=== PATIENT | male | born 1960 | race Caucasian/White ===

== ENCOUNTER 2022-11-13 14:38 | Inpatient (IN) | payer MEDICAID ==
[~2022-11-13] VITALS: Ht 170.2 cm; Wt 99.7 kg
[2022-11-13 15:07] LABS: BASOPHILS % (AUTO) 0.3 % (0-1); EOSINOPHILS # (AUTO) 0.1 X10'3 (0-0.9); HEMATOCRIT 40.6 % (42.0-52.0); LYMPHOCYTES # (AUTO) 1.3 X10'3 (1.1-4.8); LYMPHOCYTES % (AUTO) 19.6 % (21-51); MEAN CORPUSCULAR HEMOGLOBIN 29.5 PG (27.0-31.0); MEAN CORPUSCULAR HGB CONC 34.4 g/dL (33.0-36.5); MEAN CORPUSCULAR VOLUME 85.6 FL (78-98); MEAN PLATELET VOLUME 6.8 FL (7.4-10.4); MONOCYTES # (AUTO) 0.7 X10'3 (0-0.9); MONOCYTES % (AUTO) 10.5 % (2-12); NEUTROPHILS # (AUTO) 4.7 X10'3 (1.8-7.7); NEUTROPHILS % (AUTO) 68.6 % (42-75); PLATELET COUNT 272 X10'3 (140-440); RED BLOOD COUNT 4.75 X10'6 (4.70-6.10); RED CELL DISTRIBUTION WIDTH 13.7 % (11.5-14.5); WHITE BLOOD COUNT 6.9 X10'3 (4.5-11.0)
[2022-11-13 15:22] LABS: ALANINE AMINOTRANSFERASE 168 U/L (12-78); ALBUMIN 3.2 G/DL (3.4-5.0); ALKALINE PHOSPHATASE 97 IU/L (46-116); ANION GAP 11 (8-16); ASPARTATE AMINO TRANSFERASE 59 U/L (10-37); BILIRUBIN,TOTAL 0.5 MG/DL (0.1-1.0); BLOOD UREA NITROGEN 13 MG/DL (7-18); BUN/CREATININE RATIO 13.1 (5.4-32.0); CALCIUM 8.4 MG/DL (8.5-10.1); CHLORIDE 103 MMOL/L (99-107); CREATININE 0.99 MG/DL (0.60-1.10); GLUCOSE 130 MG/DL (70-104); POTASSIUM 3.4 MMOL/L (3.5-5.1); SODIUM 138 MMOL/L (135-145); TOTAL CARBON DIOXIDE 24.2 MMOL/L (24-32); TOTAL PROTEIN 6.4 G/DL (6.4-8.2); eGFR 77 ML/MIN
[2022-11-13] MEDS ORDERED: nitroGLYCERIN 0.4mg SUBLingual tab SL PRN ×3 (15:35→17:10)
[2022-11-13] MEDS ORDERED: aspirin 81mg tab.chew PO ONE (15:35)
[2022-11-13] MEDS ORDERED: heparin 10,000 units/1 ML INJ IV ONE (15:35)
[2022-11-13 16:02] LABS: APTT 29 SECONDS (22-32)
[2022-11-13] MEDS: heparin 25,000 UNIT/250ml bag 250 ML IV PRN (16:34)
--- NOTE | 2022-11-13 16:41 | NUR ---
FIRST CONTACT. AO4 RESP EVEN UNLABORED SOB WITH EXCERSION. SPEAKS IN COMPLETE SENTENCES. SKIN W/D/I PINK.
[2022-11-13] MEDS ORDERED: potassium Cl 20 mEq SR tablet PO PRN ×2 (16:55)
[2022-11-13] MEDS ORDERED: LORazepam 1 MG tablet PO PRN (16:55)
[2022-11-13] MEDS ORDERED: magnesium 2GM in 50ml NS 50 ML IV PRN (16:55)
[2022-11-13] MEDS ORDERED: acetaminophen 325mg tablet PO PRN (16:55)
[2022-11-13] MEDS ORDERED: haloperidol lactate 5mg/ml inj IM PRN (16:55)
[2022-11-13] MEDS: normal saline 1000ml 1,000 ML IV SCH (16:55)
[2022-11-13] MEDS ORDERED: ondansetron/PF 4mg/2ml inj IV PRN (16:55)
[2022-11-13] MEDS ORDERED: magnesium 4gm in 100ml NS 100 ML IV PRN (16:55)
[2022-11-13] MEDS ORDERED: LORazepam 2 mg/ml vial IV PRN (16:55)
[2022-11-13] MEDS ORDERED: potassium Cl 40MEQ/1/2NS 520ml 520 ML IV PRN (16:55)
[2022-11-13] MEDS ORDERED: magnesium hydroxide 30ml (MOM) UD suspension PO PRN (16:55)
[2022-11-13] MEDS ORDERED: haloperidol 5mg tablet PO PRN (16:55)
[2022-11-13] MEDS ORDERED: morphine 2 MG/ML inj. syringe IV PRN (16:55)
[2022-11-13] MEDS ORDERED: regadenoson 0.4mg/5ml syringe IV PRN (16:55)
[2022-11-13] MEDS ORDERED: aminophylline 250mg/10ml inj. IV PRN (16:55)
[2022-11-13] MEDS ORDERED: mag hydrox/Alum hydrox/simeth 30ml oral suspension PO PRN (16:55)
[2022-11-13] MEDS ORDERED: metoprolol tartrate 1mg/ml inj IV PRN (16:55)
--- NOTE | 2022-11-13 18:30 | NUR ---
REPORT TO EMERSON LAYTON FOR CONTINUATION OF CARE
[2022-11-13] MEDS ORDERED: APIX5TAB3 PO (19:12)
[2022-11-13] MEDS ORDERED: CETI10TA14 PO (19:12)
[2022-11-13] MEDS ORDERED: ATOR40TA72 PO (19:12)
[2022-11-13] MEDS ORDERED: LOSA50TA64 PO (19:12)
[2022-11-13] MEDS: K and/or MAG REPLACEMENT MC SCH (20:00)
[2022-11-13] MEDS: docusate sod 100mg capsule PO SCH (20:00)
[2022-11-13 22:06] LABS: CLARITY,URINE SLIGHTLY CLOUDY (Clear); COLOR,URINE AMBER (Yellow); GLUCOSE, URINE NEGATIVE (Neg); KETONES,URINE TRACE mg/dl (Neg); LEUKOCYTE ESTERASE ,URINE NEGATIVE (Neg); NITRITES, URINE NEGATIVE (Neg); OCCULT BLOOD,URINE LARGE (Neg); PROTEIN,URINE NEGATIVE (Neg)
[2022-11-13 22:10] LABS: UA COLLECTION TYPE CLN CATCH MIDSTREAM
[2022-11-13 22:14] LABS: RBC,URINE 50-100 /HPF (0-2); WBC,URINE 0-4 /HPF (0-4)
[2022-11-13 22:40] LABS: BACTERIA,URINE NONE SEEN /HPF (Neg); MUCUS STRANDS MODERATE /LPF (Neg); SQUAMOUS EPITHELIAL CELL,UR NONE SEEN /LPF (FEW)
[2022-11-13 23:30] VITALS: BP 142/98
[2022-11-14] VITALS (13 sets, daily range): BP systolic 115–136; BP diastolic 77–92
[2022-11-14] MEDS ORDERED: CEPH500C2 PO (04:25)
[2022-11-14] MEDS: heparin 10,000 units/1 ML INJ IV PRN ×2 (05:59→13:30)
[2022-11-14] MEDS: normal saline 1000ml 1,000 ML IV SCH (06:03)
--- NOTE | 2022-11-14 07:15 | NUR ---
Patient in room PCU 3014. I have received report from EMERSON Gomes and had the opportunity to ask questions and assume patient care.
[2022-11-14 07:42] LABS: BASOPHILS % (AUTO) 0.4 % (0-1); EOSINOPHILS # (AUTO) 0.1 X10'3 (0-0.9); EOSINOPHILS % (AUTO) 1.4 % (0-6); HEMATOCRIT 40.1 % (42.0-52.0); HEMOGLOBIN 13.6 g/dl (14.0-17.9); LYMPHOCYTES # (AUTO) 1.8 X10'3 (1.1-4.8); LYMPHOCYTES % (AUTO) 21.9 % (21-51); MEAN CORPUSCULAR HEMOGLOBIN 29.3 PG (27.0-31.0); MEAN CORPUSCULAR HGB CONC 33.9 g/dL (33.0-36.5); MEAN CORPUSCULAR VOLUME 86.4 FL (78-98); MEAN PLATELET VOLUME 7.1 FL (7.4-10.4); MONOCYTES # (AUTO) 0.8 X10'3 (0-0.9); MONOCYTES % (AUTO) 10.5 % (2-12); NEUTROPHILS # (AUTO) 5.3 X10'3 (1.8-7.7); NEUTROPHILS % (AUTO) 65.8 % (42-75); PLATELET COUNT 256 X10'3 (140-440); RED BLOOD COUNT 4.64 X10'6 (4.70-6.10); RED CELL DISTRIBUTION WIDTH 14.2 % (11.5-14.5)
[2022-11-14 07:57] LABS: ALANINE AMINOTRANSFERASE 138 U/L (12-78); ALBUMIN 2.8 G/DL (3.4-5.0); ALBUMIN/GLOBULIN RATIO 0.9 (1.1-1.5); ALKALINE PHOSPHATASE 78 IU/L (46-116); ANION GAP 10 (8-16); ASPARTATE AMINO TRANSFERASE 54 U/L (10-37); BILIRUBIN,TOTAL 0.6 MG/DL (0.1-1.0); BLOOD UREA NITROGEN 14 MG/DL (7-18); BUN/CREATININE RATIO 16.7 (5.4-32.0); CALCIUM 8.2 MG/DL (8.5-10.1); CHLORIDE 105 MMOL/L (99-107); CREATININE 0.84 MG/DL (0.60-1.10); GLUCOSE 116 MG/DL (70-104); LIPASE 60 U/L (73-393); MAGNESIUM 1.8 MG/DL (1.5-2.4); PHOSPHORUS 4.3 MG/DL (2.3-4.5); POTASSIUM 3.9 MMOL/L (3.5-5.1); SODIUM 138 MMOL/L (135-145); TOTAL CARBON DIOXIDE 23.2 MMOL/L (24-32); TOTAL PROTEIN 5.9 G/DL (6.4-8.2); eGFR > 90 ML/MIN
[2022-11-14] MEDS: K and/or MAG REPLACEMENT MC SCH ×2 (08:00→20:00)
--- NOTE | 2022-11-14 08:55 | NUR ---
pt to nuc med with RN, on heparin gtt, pt able to transfer self without assist from bed to wheelchair
--- NOTE | 2022-11-14 10:20 | NUR ---
pt back to room, report to Mattie RN, Dr Lopez aware stress test is done, pt tolerated well
[2022-11-14] MEDS: docusate sod 100mg capsule PO SCH ×2 (10:36→20:53)
[2022-11-14] MEDS: multivitamins, therapeutics tablet PO SCH (10:36)
[2022-11-14] MEDS: heparin 25,000 UNIT/250ml bag 250 ML IV PRN (11:10)
[2022-11-14] MEDS ORDERED: cetirizine 10mg tablet PO PRN (11:30)
[2022-11-14] MEDS ORDERED: carvedilol 6.25mg tablet PO ONE (11:30)
[2022-11-14] MEDS: atorvastatin 20mg tablet PO SCH (13:39)
--- NOTE | 2022-11-14 13:46 | NUR ---
PAGER ID: [phone] MESSAGE: Mattie [phone] RE: Nolan Mcarthur room 3014A - can we order him a diet?
--- NOTE | 2022-11-14 18:00 | NUR ---
Patient in room PCU 3014. I have received report from Mattie NORMAN and had the opportunity to ask questions and assume patient care.
--- NOTE | 2022-11-14 18:14 | NUR ---
Problems reprioritized. Patient report given, questions answered & plan of care reviewed with EMERSON Mccollum.
--- NOTE | 2022-11-14 20:00 | NUR ---
PTT 60 AT 1930 BLOOD DRAW; WITHIN THERAPEUTIC RANGE; NO CHANGES MADE.
[2022-11-14] MEDS: carvedilol 6.25mg tablet PO SCH (20:53)
[2022-11-15] MEDS: normal saline 1000ml 1,000 ML IV SCH ×2 (01:50→08:57)
[2022-11-15 02:00] VITALS: BP 124/75
[2022-11-15] MEDS: heparin 25,000 UNIT/250ml bag 250 ML IV PRN ×2 (03:03→20:07)
--- NOTE | 2022-11-15 06:47 | NUR ---
Problems reprioritized. Patient report given, questions answered & plan of care reviewed with Jeremie NORMAN.
[2022-11-15 07:00] VITALS: BP 131/90
[2022-11-15] MEDS: K and/or MAG REPLACEMENT MC SCH ×2 (08:00→19:25)
[2022-11-15] MEDS: atorvastatin 20mg tablet PO SCH (08:56)
[2022-11-15] MEDS: multivitamins, therapeutics tablet PO SCH (08:56)
[2022-11-15] MEDS: losartan 50mg tablet PO SCH (08:56)
[2022-11-15] MEDS: carvedilol 6.25mg tablet PO SCH ×2 (08:56→19:59)
[2022-11-15] MEDS: docusate sod 100mg capsule PO SCH ×2 (08:57→19:59)
[2022-11-15] MEDS ORDERED: furosemide 40mg/4ml inj IV ONE (09:10)
[2022-11-15 09:49] LABS: BASOPHILS % (AUTO) 0.2 % (0-1); EOSINOPHILS # (AUTO) 0.1 X10'3 (0-0.9); EOSINOPHILS % (AUTO) 1.9 % (0-6); HEMATOCRIT 40.1 % (42.0-52.0); HEMOGLOBIN 13.7 g/dl (14.0-17.9); LYMPHOCYTES # (AUTO) 1.6 X10'3 (1.1-4.8); LYMPHOCYTES % (AUTO) 20.4 % (21-51); MEAN CORPUSCULAR HEMOGLOBIN 29.6 PG (27.0-31.0); MEAN CORPUSCULAR HGB CONC 34.2 g/dL (33.0-36.5); MEAN CORPUSCULAR VOLUME 86.4 FL (78-98); MEAN PLATELET VOLUME 6.8 FL (7.4-10.4); MONOCYTES # (AUTO) 0.8 X10'3 (0-0.9); MONOCYTES % (AUTO) 10.1 % (2-12); NEUTROPHILS # (AUTO) 5.1 X10'3 (1.8-7.7); NEUTROPHILS % (AUTO) 67.4 % (42-75); PLATELET COUNT 295 X10'3 (140-440); RED BLOOD COUNT 4.65 X10'6 (4.70-6.10); RED CELL DISTRIBUTION WIDTH 13.4 % (11.5-14.5); WHITE BLOOD COUNT 7.6 X10'3 (4.5-11.0)
[2022-11-15 10:08] LABS: TOTAL CARBON DIOXIDE 22.6 MMOL/L (24-32)
[2022-11-15 11:00] VITALS: BP 109/77
[2022-11-15 11:03] LABS: ALANINE AMINOTRANSFERASE 126 U/L (12-78); ALBUMIN 2.8 G/DL (3.4-5.0); ALBUMIN/GLOBULIN RATIO 0.9 (1.1-1.5); ALKALINE PHOSPHATASE 75 IU/L (46-116); ANION GAP 11 (8-16); ASPARTATE AMINO TRANSFERASE 39 U/L (10-37); BILIRUBIN,TOTAL 0.5 MG/DL (0.1-1.0); BLOOD UREA NITROGEN 12 MG/DL (7-18); BUN/CREATININE RATIO 14.3 (5.4-32.0); CALCIUM 8.3 MG/DL (8.5-10.1); CHLORIDE 105 MMOL/L (99-107); CREATININE 0.84 MG/DL (0.60-1.10); GLUCOSE 135 MG/DL (70-104); LIPASE 65 U/L (73-393); MAGNESIUM 1.9 MG/DL (1.5-2.4); POTASSIUM 3.8 MMOL/L (3.5-5.1); SODIUM 139 MMOL/L (135-145); TOTAL PROTEIN 5.9 G/DL (6.4-8.2); eGFR > 90 ML/MIN
[2022-11-15 15:00] VITALS: BP 126/76
[2022-11-15] MEDS: heparin 10,000 units/1 ML INJ IV PRN (16:32)
[2022-11-15 18:00] VITALS: BP 109/69
--- NOTE | 2022-11-15 18:00 | NUR ---
Patient in room PCU 3014. I have received report from Jeremie NORMAN and had the opportunity to ask questions and assume patient care.
[2022-11-15 22:00] VITALS: BP 112/65
[2022-11-16] VITALS (10 sets, daily range): BP systolic 77–120; BP diastolic 40–75
[2022-11-16] MEDS: heparin 10,000 units/1 ML INJ IV PRN (01:01)
[2022-11-16] MEDS: heparin 25,000 UNIT/250ml bag 250 ML IV PRN (01:06)
--- NOTE | 2022-11-16 06:33 | NUR ---
Problems reprioritized. Patient report given, questions answered & plan of care reviewed with Jeremie NORMAN.
[2022-11-16 07:20] LABS: BASOPHILS % (AUTO) 0.4 % (0-1); EOSINOPHILS # (AUTO) 0.1 X10'3 (0-0.9); EOSINOPHILS % (AUTO) 1.5 % (0-6); HEMATOCRIT 42.1 % (42.0-52.0); HEMOGLOBIN 14.5 g/dl (14.0-17.9); LYMPHOCYTES # (AUTO) 2.2 X10'3 (1.1-4.8); LYMPHOCYTES % (AUTO) 24.2 % (21-51); MEAN CORPUSCULAR HEMOGLOBIN 29.9 PG (27.0-31.0); MEAN CORPUSCULAR HGB CONC 34.4 g/dL (33.0-36.5); MEAN PLATELET VOLUME 6.8 FL (7.4-10.4); MONOCYTES # (AUTO) 0.9 X10'3 (0-0.9); MONOCYTES % (AUTO) 10.1 % (2-12); NEUTROPHILS # (AUTO) 5.8 X10'3 (1.8-7.7); NEUTROPHILS % (AUTO) 63.8 % (42-75); PLATELET COUNT 343 X10'3 (140-440); RED BLOOD COUNT 4.84 X10'6 (4.70-6.10); RED CELL DISTRIBUTION WIDTH 13.9 % (11.5-14.5); WHITE BLOOD COUNT 9.2 X10'3 (4.5-11.0)
[2022-11-16] MEDS: losartan 50mg tablet PO SCH ×2 (08:00→08:56)
[2022-11-16] MEDS: docusate sod 100mg capsule PO SCH ×2 (08:00→20:00)
[2022-11-16] MEDS: carvedilol 6.25mg tablet PO SCH ×3 (08:00→21:24)
[2022-11-16] MEDS: multivitamins, therapeutics tablet PO SCH ×2 (08:00→08:57)
[2022-11-16] MEDS: K and/or MAG REPLACEMENT MC SCH ×2 (08:00→19:06)
[2022-11-16 08:19] LABS: ALANINE AMINOTRANSFERASE 120 U/L (12-78); ALBUMIN 3.1 G/DL (3.4-5.0); ALBUMIN/GLOBULIN RATIO 0.9 (1.1-1.5); ALKALINE PHOSPHATASE 79 IU/L (46-116); ANION GAP 8 (8-16); ASPARTATE AMINO TRANSFERASE 44 U/L (10-37); BILIRUBIN,TOTAL 0.5 MG/DL (0.1-1.0); BLOOD UREA NITROGEN 14 MG/DL (7-18); BUN/CREATININE RATIO 13.3 (5.4-32.0); CALCIUM 8.9 MG/DL (8.5-10.1); CHLORIDE 105 MMOL/L (99-107); CREATININE 1.05 MG/DL (0.60-1.10); GLUCOSE 113 MG/DL (70-104); LIPASE 61 U/L (73-393); MAGNESIUM 1.9 MG/DL (1.5-2.4); PHOSPHORUS 5.1 MG/DL (2.3-4.5); POTASSIUM 4.1 MMOL/L (3.5-5.1); SODIUM 140 MMOL/L (135-145); TOTAL CARBON DIOXIDE 26.8 MMOL/L (24-32); TOTAL PROTEIN 6.5 G/DL (6.4-8.2); eGFR 72 ML/MIN
--- NOTE | 2022-11-16 08:20 | NUR ---
critical aPTT of 103. notified. Last aPTT 29. Possible sample contamination and lab recommending another draw.
[2022-11-16] MEDS: atorvastatin 20mg tablet PO SCH (08:24)
[2022-11-16] MEDS: furosemide 40mg/4ml inj IV SCH (08:24)
[2022-11-16] MEDS ORDERED: nitroGLYCERIN-Tridil 50MG/D5W 250 ML IV ONE (13:09)
[2022-11-16] MEDS ORDERED: verapamil 2.5 mg/ml inj IV ONE (13:09)
[2022-11-16] MEDS ORDERED: midazolam 1 mg/ML 2ml injection ONE (13:10)
[2022-11-16] MEDS ORDERED: LIDOcaine 1% (10mg/ml) 2ml vial ONE (13:10)
[2022-11-16] MEDS ORDERED: iohexol 350MG/ML 100ml bottle IV ONE (13:10)
[2022-11-16] MEDS ORDERED: heparin 1,000unit/ml 10ml vial 10 ML ONE ×2 (13:10→13:17)
[2022-11-16] MEDS ORDERED: fentaNYL/PF 50MCG/1 ML 2ML syringe ONE (13:11)
[2022-11-16] MEDS ORDERED: ondansetron/PF 4mg/2ml inj IV PRN (15:10)
[2022-11-16] MEDS ORDERED: proCHLORperazine 10 MG/2 ml inj IV PRN (15:10)
[2022-11-16 15:24] LABS: CHOLESTEROL 196 MG/DL (0-200); HDL CHOLESTEROL 49 MG/DL (35-60); LDL CHOLESTEROL 136 MG/DL (50-100); TRIGLYCERIDES 78 MG/DL (20-135)
--- NOTE | 2022-11-16 18:00 | NUR ---
Patient in room PCU 3014. I have received report from Jeremie NORMAN and had the opportunity to ask questions and assume patient care.
[2022-11-16] MEDS: OXAZEpam 15mg capsule PO PRN (23:02)
[2022-11-17 02:00] VITALS: BP 112/74
[2022-11-17 06:00] VITALS: BP 107/65
--- NOTE | 2022-11-17 06:35 | NUR ---
Problems reprioritized. Patient report given, questions answered & plan of care reviewed with Carrol NORMAN.
[2022-11-17 07:03] LABS: BASOPHILS # (AUTO) 0.1 X10'3 (0-0.2); BASOPHILS % (AUTO) 0.8 % (0-1); EOSINOPHILS # (AUTO) 0.2 X10'3 (0-0.9); HEMATOCRIT 40.6 % (42.0-52.0); LYMPHOCYTES # (AUTO) 1.7 X10'3 (1.1-4.8); LYMPHOCYTES % (AUTO) 20.8 % (21-51); MEAN CORPUSCULAR HEMOGLOBIN 29.7 PG (27.0-31.0); MEAN CORPUSCULAR HGB CONC 34.4 g/dL (33.0-36.5); MEAN CORPUSCULAR VOLUME 86.3 FL (78-98); MEAN PLATELET VOLUME 6.3 FL (7.4-10.4); MONOCYTES # (AUTO) 0.9 X10'3 (0-0.9); MONOCYTES % (AUTO) 11.1 % (2-12); NEUTROPHILS # (AUTO) 5.4 X10'3 (1.8-7.7); NEUTROPHILS % (AUTO) 65.3 % (42-75); PLATELET COUNT 351 X10'3 (140-440); RED BLOOD COUNT 4.71 X10'6 (4.70-6.10); RED CELL DISTRIBUTION WIDTH 13.7 % (11.5-14.5); WHITE BLOOD COUNT 8.3 X10'3 (4.5-11.0)
[2022-11-17] MEDS: losartan 50mg tablet PO SCH (07:49)
[2022-11-17] MEDS: carvedilol 6.25mg tablet PO SCH ×2 (07:49→19:13)
[2022-11-17] MEDS: atorvastatin 20mg tablet PO SCH (07:49)
[2022-11-17] MEDS: furosemide 40mg/4ml inj IV SCH (07:49)
[2022-11-17] MEDS: spironolactone 25 MG tablet PO SCH (07:50)
[2022-11-17] MEDS: multivitamins, therapeutics tablet PO SCH (07:50)
[2022-11-17] MEDS: docusate sod 100mg capsule PO SCH ×2 (08:00→19:15)
[2022-11-17] MEDS: K and/or MAG REPLACEMENT MC SCH ×2 (08:00→20:49)
[2022-11-17 08:06] LABS: ALANINE AMINOTRANSFERASE 121 U/L (12-78); ALBUMIN/GLOBULIN RATIO 0.9 (1.1-1.5); ALKALINE PHOSPHATASE 77 IU/L (46-116); ANION GAP 9 (8-16); ASPARTATE AMINO TRANSFERASE 45 U/L (10-37); BILIRUBIN,TOTAL 0.5 MG/DL (0.1-1.0); BLOOD UREA NITROGEN 18 MG/DL (7-18); BUN/CREATININE RATIO 16.7 (5.4-32.0); CALCIUM 8.7 MG/DL (8.5-10.1); CHLORIDE 104 MMOL/L (99-107); CREATININE 1.08 MG/DL (0.60-1.10); GLUCOSE 130 MG/DL (70-104); LIPASE 79 U/L (73-393); MAGNESIUM 1.8 MG/DL (1.5-2.4); PHOSPHORUS 5.3 MG/DL (2.3-4.5); SODIUM 139 MMOL/L (135-145); TOTAL CARBON DIOXIDE 25.8 MMOL/L (24-32); TOTAL PROTEIN 6.2 G/DL (6.4-8.2); eGFR 69 ML/MIN
--- NOTE | 2022-11-17 08:53 | NUR ---
sent to Dr. Lopez: 1436F Blue, no heparin gtt running. álvaro rn stated it was only ordered for 48 hrs so it has been stopped. Just an fyi. Carrol NORMAN [phone]
--- NOTE | 2022-11-17 09:03 | NUR ---
Sent to [facility]: [id number] Blue: Pt not on a heparin gtt this morning. no orders on post cath orders. Do you want me to start it back up? Thank you.
[2022-11-17 11:00] VITALS: BP 103/62
[2022-11-17] MEDS: calcium acetate 667mg (PhosLO) capsule PO SCH ×2 (13:21→17:58)
[2022-11-17] MEDS: morphine 2 MG/ML inj. syringe IV PRN ×2 (13:32→20:56)
[2022-11-17 15:00] VITALS: BP 107/65
--- NOTE | 2022-11-17 17:13 | NUR ---
sent to case management: [id number] ebenezer: pt requesting disability paperwork, all medical records for this admission including cd's for echo, heart cath etc. [place]. thank you.
[2022-11-17 18:00] VITALS: BP 117/72
[2022-11-17] MEDS: OXAZEpam 15mg capsule PO PRN (23:03)
[2022-11-18 01:43] VITALS: BP 96/60
--- NOTE | 2022-11-18 02:50 | NUR ---
REVIEWED LABORATORY MANAGER ASSESSMENT AND IN AGREEMENT,
[2022-11-18 06:00] VITALS: BP 117/72
[2022-11-18 06:49] LABS: BASOPHILS # (AUTO) 0.1 X10'3 (0-0.2); BASOPHILS % (AUTO) 0.5 % (0-1); EOSINOPHILS # (AUTO) 0.2 X10'3 (0-0.9); EOSINOPHILS % (AUTO) 1.8 % (0-6); HEMATOCRIT 41.2 % (42.0-52.0); HEMOGLOBIN 14.2 g/dl (14.0-17.9); LYMPHOCYTES # (AUTO) 2.1 X10'3 (1.1-4.8); LYMPHOCYTES % (AUTO) 20.2 % (21-51); MEAN CORPUSCULAR HEMOGLOBIN 29.7 PG (27.0-31.0); MEAN CORPUSCULAR HGB CONC 34.6 g/dL (33.0-36.5); MEAN CORPUSCULAR VOLUME 85.8 FL (78-98); MEAN PLATELET VOLUME 6.3 FL (7.4-10.4); MONOCYTES # (AUTO) 1.2 X10'3 (0-0.9); MONOCYTES % (AUTO) 11.3 % (2-12); NEUTROPHILS # (AUTO) 6.8 X10'3 (1.8-7.7); NEUTROPHILS % (AUTO) 66.2 % (42-75); PLATELET COUNT 375 X10'3 (140-440); RED CELL DISTRIBUTION WIDTH 13.6 % (11.5-14.5); WHITE BLOOD COUNT 10.3 X10'3 (4.5-11.0)
[2022-11-18 07:14] LABS: ALANINE AMINOTRANSFERASE 141 U/L (12-78); ALBUMIN 3.3 G/DL (3.4-5.0); ALBUMIN/GLOBULIN RATIO 1.1 (1.1-1.5); ALKALINE PHOSPHATASE 76 IU/L (46-116); ANION GAP 10 (8-16); ASPARTATE AMINO TRANSFERASE 60 U/L (10-37); BILIRUBIN,TOTAL 0.4 MG/DL (0.1-1.0); BLOOD UREA NITROGEN 20 MG/DL (7-18); BUN/CREATININE RATIO 20.6 (5.4-32.0); CALCIUM 9.1 MG/DL (8.5-10.1); CHLORIDE 104 MMOL/L (99-107); CREATININE 0.97 MG/DL (0.60-1.10); GLUCOSE 106 MG/DL (70-104); LIPASE 82 U/L (73-393); MAGNESIUM 1.8 MG/DL (1.5-2.4); PHOSPHORUS 5.3 MG/DL (2.3-4.5); POTASSIUM 3.9 MMOL/L (3.5-5.1); SODIUM 138 MMOL/L (135-145); TOTAL CARBON DIOXIDE 24.5 MMOL/L (24-32); TOTAL PROTEIN 6.4 G/DL (6.4-8.2); eGFR 78 ML/MIN
--- NOTE | 2022-11-18 07:17 | NUR ---
Patient in room PCU 3014. I have received report from EMERSON ROBLES, and had the opportunity to ask questions and assume patient care.
[2022-11-18] MEDS: furosemide 40mg/4ml inj IV SCH (07:47)
[2022-11-18] MEDS: K and/or MAG REPLACEMENT MC SCH ×2 (07:48→20:00)
[2022-11-18] MEDS: thiamine 100mg tablet PO SCH (07:48)
[2022-11-18] MEDS: atorvastatin 20mg tablet PO SCH (07:49)
[2022-11-18] MEDS: folic acid 1mg tablet PO SCH (07:49)
[2022-11-18] MEDS: docusate sod 100mg capsule PO SCH ×2 (07:49→20:00)
[2022-11-18] MEDS: multivitamins, therapeutics tablet PO SCH (07:49)
[2022-11-18] MEDS: calcium acetate 667mg (PhosLO) capsule PO SCH ×3 (07:49→18:05)
[2022-11-18] MEDS: carvedilol 6.25mg tablet PO SCH ×2 (07:50→20:38)
[2022-11-18] MEDS: spironolactone 25 MG tablet PO SCH (07:50)
[2022-11-18] MEDS: losartan 50mg tablet PO SCH (07:51)
[2022-11-18] MEDS: aspirin 81mg tab.chew PO SCH (09:17)
[2022-11-18] MEDS: clopidogrel 75mg tablet PO SCH (11:22)
[2022-11-18 11:25] VITALS: BP 93/47
[2022-11-18] MEDS ORDERED: SACU1TAB7 PO (11:47)
[2022-11-18] MEDS ORDERED: ASPI81TA53 PO (11:47)
[2022-11-18] MEDS ORDERED: CARV6.253 PO (11:47)
[2022-11-18] MEDS ORDERED: SPIR25TA PO (11:47)
[2022-11-18] MEDS ORDERED: CLOP75TA34 PO (11:47)
[2022-11-18 12:08] VITALS: BP 98/52
--- NOTE | 2022-11-18 14:13 | NUR ---
PAGE SENT PAGER ID: [phone] MESSAGE: [phone], ESTHER CARLIN, PT C/O OF FLANK PAIN, PER PT TYLENOL NO EFFECTIVE. PT'S BP IS LOW 97/48. MIGHT TRAMADOL BE AN OPTION? THANK YOU, BERTHA [phone]
[2022-11-18] MEDS ORDERED: traMADol 50MG tablet PO ONE (14:15)
[2022-11-18 14:47] VITALS: BP 97/54
[2022-11-18 18:00] VITALS: BP 112/71
--- NOTE | 2022-11-18 18:35 | NUR ---
Problems reprioritized. Patient report given, questions answered & plan of care reviewed with YENI ROBLES.
[2022-11-18] MEDS: traMADol 50MG tablet PO PRN (21:34)
[2022-11-19] MEDS: OXAZEpam 15mg capsule PO PRN ×2 (00:08→23:36)
[2022-11-19 01:56] VITALS: BP 110/57
--- NOTE | 2022-11-19 06:37 | NUR ---
Agree with Jeremy JAIME except where I documented my findings.
[2022-11-19] MEDS: K and/or MAG REPLACEMENT MC SCH ×2 (06:39→19:49)
[2022-11-19 07:00] VITALS: BP 105/70
[2022-11-19] MEDS: clopidogrel 75mg tablet PO SCH (07:32)
[2022-11-19] MEDS: furosemide 40mg/4ml inj IV SCH (07:32)
[2022-11-19] MEDS: multivitamins, therapeutics tablet PO SCH (07:32)
[2022-11-19] MEDS: carvedilol 6.25mg tablet PO SCH ×2 (07:32→19:46)
[2022-11-19] MEDS: atorvastatin 20mg tablet PO SCH (07:32)
[2022-11-19] MEDS: calcium acetate 667mg (PhosLO) capsule PO SCH ×3 (07:33→17:14)
[2022-11-19] MEDS: losartan 50mg tablet PO SCH (07:33)
[2022-11-19] MEDS: thiamine 100mg tablet PO SCH (07:33)
[2022-11-19] MEDS: folic acid 1mg tablet PO SCH (07:33)
[2022-11-19] MEDS: docusate sod 100mg capsule PO SCH ×2 (07:34→19:47)
[2022-11-19] MEDS: aspirin 81mg tab.chew PO SCH (07:50)
[2022-11-19] MEDS: spironolactone 25 MG tablet PO SCH (07:50)
[2022-11-19] MEDS: traMADol 50MG tablet PO PRN ×3 (07:55→19:46)
[2022-11-19 11:00] VITALS: BP 101/49
--- NOTE | 2022-11-19 13:49 | NUR ---
Initial: Pt admit for NSTEMI and acute systolic heart failure. Pt on a heart healthy diet and eating well, documented with mostly 100% PO intake. Per EMR pt with EtOH hx, currently receiving routine Thiamine, Folic acid, and MVI. LBM 11/19. No nutrition intervention implemented at this time. Will continue to follow. Recommendations: 1) Continue heart healthy diet 2) Routine Thiamine, Folic acid, and MVI for EtOH hx 3) Routine bowel care 4) Weekly scaled weights Addendum: 11/19/22 at [address] Amended: Links added.
[2022-11-19 15:00] VITALS: BP 95/56
[2022-11-19 18:00] VITALS: BP 111/77
--- NOTE | 2022-11-19 18:45 | NUR ---
Problems reprioritized. Patient report given, questions answered & plan of care reviewed with Katerina.
[2022-11-19 22:00] VITALS: BP 101/67
[2022-11-20 02:00] VITALS: BP 101/51
--- NOTE | 2022-11-20 06:40 | NUR ---
Patient in room PCU 3014. I have received report from Katerina NORMAN and had the opportunity to ask questions and assume patient care.
[2022-11-20] MEDS: atorvastatin 20mg tablet PO SCH (07:50)
[2022-11-20] MEDS: folic acid 1mg tablet PO SCH (07:50)
[2022-11-20] MEDS: multivitamins, therapeutics tablet PO SCH (07:50)
[2022-11-20] MEDS: carvedilol 6.25mg tablet PO SCH (07:50)
[2022-11-20] MEDS: thiamine 100mg tablet PO SCH (07:50)
[2022-11-20] MEDS: docusate sod 100mg capsule PO SCH (07:50)
[2022-11-20] MEDS: calcium acetate 667mg (PhosLO) capsule PO SCH (07:50)
[2022-11-20] MEDS: aspirin 81mg tab.chew PO SCH (07:50)
[2022-11-20] MEDS: clopidogrel 75mg tablet PO SCH (07:50)
[2022-11-20] MEDS: spironolactone 25 MG tablet PO SCH (07:51)
[2022-11-20] MEDS: losartan 50mg tablet PO SCH (07:51)
[2022-11-20] MEDS: K and/or MAG REPLACEMENT MC SCH (08:00)
[2022-11-20] MEDS: furosemide 40mg/4ml inj IV SCH (08:04)
--- NOTE | 2022-11-20 10:07 | NUR ---
PAGER ID: [phone] MESSAGE: RE Nolan Mcarthur [phone] Is pt okay to DC home this am? please advise. eva Rebeka [phone]
[2022-11-20 10:38] VITALS: BP 115/68
[2022-11-20 10:39] VITALS: BP 112/77
--- NOTE | 2022-11-20 12:34 | NUR ---
pt discharged to home via private vehicle with friend driving, transported to vehicle by staff in wheelchair. VSS, pt alert and oriented upon DC, PIV removed with canula intact and no s/s of infection or infiltration. pt understanding and verbally agreeable to all discharge instruction and education.
== END 2022-11-20 12:28 | disposition home or self-care (01) | DRG 190 ==
LOC: ER 14:40 → ED HOLD 16:59 → EDBEDREQ 22:37 → PCU 3S 23:45
PROVIDERS: ADMIT Family Medicine; ATTEND Family Medicine
PROC: 4A02XM4 Measurement of Cardiac Total Activity, External Approach (ICD-10-PCS; 2022-11-14)
PROC: 3E033HZ Introduction of Radioactive Substance into Peripheral Vein, Percutaneous Approach (ICD-10-PCS; 2022-11-14)
PROC: 4A023N7 Measurement of Cardiac Sampling and Pressure, Left Heart, Percutaneous Approach (ICD-10-PCS; principal; 2022-11-16)
PROC: B2111ZZ Fluoroscopy of Multiple Coronary Arteries using Low Osmolar Contrast (ICD-10-PCS; 2022-11-16)
PROC: B2151ZZ Fluoroscopy of Left Heart using Low Osmolar Contrast (ICD-10-PCS; 2022-11-16)
DX: I21.4 Non-ST elevation (NSTEMI) myocardial infarction (principal); I50.23 Acute on chronic systolic (congestive) heart failure; Z20.822 Contact with and (suspected) exposure to COVID-19; I11.0 Hypertensive heart disease with heart failure; E78.00 Pure hypercholesterolemia, unspecified; I25.10 Atherosclerotic heart disease of native coronary artery without angina pectoris; I25.5 Ischemic cardiomyopathy; F10.10 Alcohol abuse, uncomplicated; N20.0 Calculus of kidney; I42.0 Dilated cardiomyopathy; F15.10 Other stimulant abuse, uncomplicated; E87.6 Hypokalemia; Z79.01 Long term (current) use of anticoagulants; Z79.82 Long term (current) use of aspirin; Z82.49 Family history of ischemic heart disease and other diseases of the circulatory system; Z86.711 Personal history of pulmonary embolism; Z87.442 Personal history of urinary calculi; Z95.5 Presence of coronary angioplasty implant and graft; Z79.899 Other long term (current) drug therapy; Z71.41 Alcohol abuse counseling and surveillance of alcoholic; Z71.51 Drug abuse counseling and surveillance of drug abuser
CPT/HCPCS: 36415; 71045; 78452; 80053; 80061; 81001; 83690; 83735; 83880; 84100; 84484; 85025; 85610; 85730; 87081; 87811; 93005; 93017; 93306; 93458; 97110; 97161; 99152; 99285; A9500; C1769; C1894; G0378; J1644; J1940; J2250; J2270; J2785; J3010; J3490; J7030; Q9967

== ENCOUNTER 2023-01-03 15:20 | Emergency (ER) | payer MEDICAID ==
[~2023-01-03] VITALS: Ht 170.2 cm; Wt 89.1 kg
[~2023-01-03 15:20] MED LIST: APIX5TAB3 PO; ASPI81TA53 PO; ATOR40TA72 PO; CARV6.253 PO; CEPH500C2 PO; CETI10TA14 PO; CLOP75TA34 PO; SACU1TAB7 PO; SPIR25TA PO
[2023-01-03 16:24] LABS: CLARITY,URINE CLOUDY (Clear); COLOR,URINE BROWN (Yellow); GLUCOSE, URINE NEGATIVE (Neg); KETONES,URINE 15 mg/dl (Neg); LEUKOCYTE ESTERASE ,URINE NEGATIVE (Neg); OCCULT BLOOD,URINE LARGE (Neg); PH,URINE 5.5 (4.8-8.0); PROTEIN,URINE 100 mg/dl (Neg); UROBILINOGEN,URINE 0.2 E.U/dL (0.2-1.0)
[2023-01-03 16:25] LABS: UA COLLECTION TYPE CLN CATCH MIDSTREAM
[2023-01-03 16:33] LABS: RBC,URINE TNTC /HPF (0-2)
[2023-01-03 16:35] LABS: BACTERIA,URINE NONE SEEN /HPF (Neg); MUCUS STRANDS FEW /LPF (Neg); SQUAMOUS EPITHELIAL CELL,UR MODERATE /LPF (FEW)
[2023-01-03 16:36] LABS: NITRITES, URINE NEGATIVE (Neg)
--- NOTE | 2023-01-03 16:36 | NUR ---
NITRATE NEG PER LAB
[2023-01-03 17:59] LABS: BASOPHILS % (AUTO) 0.3 % (0-1); EOSINOPHILS # (AUTO) 0.1 X10'3 (0-0.9); EOSINOPHILS % (AUTO) 0.9 % (0-6); HEMATOCRIT 44.8 % (42.0-52.0); HEMOGLOBIN 15.4 g/dl (14.0-17.9); LYMPHOCYTES # (AUTO) 1.1 X10'3 (1.1-4.8); LYMPHOCYTES % (AUTO) 11.6 % (21-51); MEAN CORPUSCULAR HEMOGLOBIN 29.7 PG (27.0-31.0); MEAN CORPUSCULAR HGB CONC 34.3 g/dL (33.0-36.5); MEAN CORPUSCULAR VOLUME 86.5 FL (78-98); MEAN PLATELET VOLUME 6.4 FL (7.4-10.4); MONOCYTES # (AUTO) 0.9 X10'3 (0-0.9); MONOCYTES % (AUTO) 9.1 % (2-12); NEUTROPHILS # (AUTO) 7.5 X10'3 (1.8-7.7); NEUTROPHILS % (AUTO) 78.1 % (42-75); PLATELET COUNT 381 X10'3 (140-440); RED BLOOD COUNT 5.18 X10'6 (4.70-6.10); RED CELL DISTRIBUTION WIDTH 14.3 % (11.5-14.5); WHITE BLOOD COUNT 9.6 X10'3 (4.5-11.0)
[2023-01-03 18:11] LABS: ALANINE AMINOTRANSFERASE 38 U/L (12-78); ALBUMIN 3.9 G/DL (3.4-5.0); ALBUMIN/GLOBULIN RATIO 1.1 (1.1-1.5); ALKALINE PHOSPHATASE 95 IU/L (46-116); ANION GAP 8 (8-16); ASPARTATE AMINO TRANSFERASE 21 U/L (10-37); BILIRUBIN,TOTAL 0.6 MG/DL (0.1-1.0); BLOOD UREA NITROGEN 17 MG/DL (7-18); BUN/CREATININE RATIO 15.5 (5.4-32.0); CALCIUM 9.4 MG/DL (8.5-10.1); CHLORIDE 105 MMOL/L (99-107); GLUCOSE 123 MG/DL (70-104); LIPASE < 50 U/L (73-393); POTASSIUM 5.2 MMOL/L (3.5-5.1); SODIUM 140 MMOL/L (135-145); TOTAL CARBON DIOXIDE 26.7 MMOL/L (24-32); TOTAL PROTEIN 7.3 G/DL (6.4-8.2); eGFR 68 ML/MIN
[2023-01-03 20:15] VITALS: BP 101/71
[2023-01-03] MEDS ORDERED: HYDROcodone/acetaminophen 10/325mg tab PO ONE (21:40)
--- NOTE | 2023-01-03 23:00 | NUR ---
pt a&ox4. gcs 15. pt independently ambulatory w/steady gait. stated he called a [facility] ([facility]ab) for transport
== END 2023-01-03 23:01 | disposition home or self-care (01) ==
LOC: ER 15:21
DX: R31.9 Hematuria, unspecified (principal); I11.0 Hypertensive heart disease with heart failure; I50.9 Heart failure, unspecified; E78.00 Pure hypercholesterolemia, unspecified; F15.20 Other stimulant dependence, uncomplicated; Z98.890 Other specified postprocedural states
CPT/HCPCS: 36415; 74176; 80053; 81001; 83690; 85025; 87088; 99284